=== PATIENT | female | born 1995 | race Caucasian/White ===

== ENCOUNTER 2025-02-08 14:07 | Outpatient (AMB) | payer OTHER, SELFPAY ==
--- NOTE | 2025-02-08 14:10 | A.OFFVIS_ITS ---
Vital Signs 02/08/25 14:14 Height 5 ft 6 in Weight 343 lb 14.738 oz BMI 55.5 BP 116/78 Blood Pressure Location Rt brachial Position Sitting Pulse 78 Pulse Source Pulse Oximeter Pulse Oximetry (%) 96 Oxygen Delivery Method Room Air Intake Visit Reasons: T2DM w/nephropathy Intake Note: NEW Patient presents today to establish treatment for Type 2 Diabetes Mellitus & Nephropathy: Last Diabetic eye exam was on: DUE, needs to make an appt Last Podiatry exam was on: Patient does not see a Marketing Services Rep Most recent HbA1c: 6.7%, 01/20/2025 PCP Random Glucose: 119 mg/dL Sheet Metal Former Required: No Accompanied by: Self / Same As Patient Allergies clonidine Allergy (Mild, Verified 02/08/25 14:16) Hot flashes dextrose Allergy (Mild, Verified 02/08/25 14:16) Hives magnesium Allergy (Mild, Verified 02/08/25 14:16) Hives Medication List - Last Reconciled 02/08/25 by Linda William PA-C albuterol sulfate 90 mcg/actuation (Ventolin HFA) 2 puffs inhalation Q6H PRN amlodipine-benazepril 5-10 mg 1 cap PO DAILY blood sugar diagnostic (FreeStyle Lite Strips) As directed blood-glucose sensor (FreeStyle Ernesto 3 Sensor device) As directed blood-glucose sensor (FreeStyle Ernesto 3 Plus Sensor device) Use daily As directed to monitor glucose buspirone 10 mg PO BID cetirizine (Zyrtec) 10 mg PO DAILY PRN cholecalciferol (vitamin D3) 125 mcg PO DAILY clonidine HCl 0.2 mg PO TID CPAP (CPAP Machine/Device) As directed duloxetine 60 mg PO BID ferrous sulfate 324 mg PO DAILY fexofenadine-pseudoephedrine 180-240 mg ER (Irene-D 24 Hour) 1 tab PO QAM fluticasone furoate 50 mcg/actuation inhalation gabapentin 300 mg PO DAILY lancets (FreeStyle Lancets) As directed lorazepam 1 mg PO DAILY PRN metformin 500 mg PO BID midodrine 5 mg PO TID montelukast 10 mg PO DAILY naratriptan 2.5 mg PO Q4H PRN polyethylene glycol 3350 (Miralax) 17 grams PO DAILY propranolol ER 160 mg PO DAILY propranolol ER 60 mg PO DAILY trazodone 50 mg PO BEDTIME PRN HPI HPI T2DM w/nephropathy: Details: Patient is a 29-year-old female who presents today to establish care regarding diabetes. She has a significant past medical history of obstructive sleep apnea, obesity, anxiety, depression, hypertension and type 2 diabetes. Endo: Dm she was diagnosed with diabetes. Most recent A1c was 6.8. She is currently managed with metformin 500 mg twice a day -she says that she is tolerating the metformin beginning she did have some diarrhea with it. That seems to have resolved. She says that she would be hesitant to start something like Ozempic or Trulicity because she struggles with appetite suppression and does not want to be suppressed. She has a previous history of an eating disorder. She is following closely with a psychiatrist. She has been wearing a CGM which she finds helpful for monitoring her blood sugars in the foods that she is sensitive to. She says that she has recently followed with a dietitian and she is trying to make some lifestyle modifications but has a hard time. father is a prediabetic CV: Blood pressure today in the office is 116/78. She is currently on propranolol and amlodipine/benazepril 5/10 mg daily [facility] Medical History (Updated 02/08/25 @ 14:48 by Linda William PA-C) Tachycardia Mixed hyperlipidemia Diabetes mellitus Severe obesity Seasonal allergies ANCELMO (obstructive sleep apnea) Myalgia Hypertension Arthritis Arthralgia Anxiety and depression Surgical History (Updated 02/08/25 @ 14:17 by CLAUDIO Srivastava) History of partial hysterectomy Family History (Updated 02/08/25 @ 14:17 by CLAUDIO Srivastava) Father Stroke Pre-diabetes Mother No problems noted. Social History Alcohol intake: current Alcohol intake frequency: a few times a month Patient Tobacco Use Status: Never used Tobacco Physical Exam Vital Signs: Last Vital Signs Pulse 78 02/08/25 14:14 BP 116/78 02/08/25 14:14 Pulse Ox 96 02/08/25 14:14 Oxygen Delivery Method Room Air 02/08/25 14:14 BMI result Body Mass Index 55.5 Const Orientation/consciousness: patient oriented x3 Neck Neck: Yes no lymphadenopathy Thyroid: Thyroid normal Carotids: no bruits Resp Auscultation: clear to auscultation bilaterally Cardio Rate: regular rate Rhythm: regular rhythm Heart sounds: S1 normal heart sound present and S2 normal heart sound present Neuro General: patient oriented x3, gait normal and no focal motor deficits Extrem General: Yes normal to inspection Results Reviewed Results Reviewed: Laboratory Last Values Glucose (Clinic) 119 mg/dL (60-115) H 02/08/25 14:23 Assessment & Plan Assessment & Plan (1) Type II diabetes mellitus, well controlled: Code(s): E11.9 - Type 2 diabetes mellitus without complications Category: Medical Plan: we spent 65 mins in face to face time discussing the pathophysiology of diabetes, the differences between type 1 and type 2 diabetes, signs and symptoms of hyper and hypoglycemia that would require emergent medical treatment. She does not want to make any medication changes today or start a GLP 1. She will continue with the metformin. Recheck labs in 3 months. Referral to nutrition educator. I have encouraged healthy lifestyle modifications and close follow up with the dietitian. (2) Hypertension: Code(s): I10 - Essential (primary) hypertension Category: Medical Plan: wnl continue current plan Orders: Orders Comprehensive Met. Panel Today E11.9 - Type 2 diabetes mellitus without complications, I10 - Essential (primary) hypertension Hemoglobin A1c Today E11.9 - Type 2 diabetes mellitus without complications, I10 - Essential (primary) hypertension, R73.01 - Impaired fasting glucose C Peptide Today E11.9 - Type 2 diabetes mellitus without complications, I10 - Essential (primary) hypertension Islet Cell Antibody Scrn/Titer Today E11.9 - Type 2 diabetes mellitus without complications, I10 - Essential (primary) hypertension Microalbumin, Random (w Creat) Today E11.9 - Type 2 diabetes mellitus without complications, I10 - Essential (primary) hypertension Glutamic acid decarboxylase Ab Today E11.9 - Type 2 diabetes mellitus without complications, I10 - Essential (primary) hypertension Referrals Diabetes Education Referral E11.9 - Type 2 diabetes mellitus without complications Medications: New blood-glucose sensor (FreeStyle Ernesto 3 Plus Sensor device) Use daily As directed to monitor glucose 2 ea 5RF E08.29 - Diabetes mellitus due to underlying condition with other diabetic kidney complication, R80.9 - Proteinuria, unspecified, Z79.4 - FDC (current) use of insulin Coding Level of Care Code New Pt Level 5 (48392) Complex EM visit Add On G2211 Diagnoses Type II diabetes mellitus, well controlled E11.9 Hypertension I10
[2025-02-08 14:14] VITALS: BP 116/78; PULSE 78; O2SAT 96; BMI 55.5
[2025-02-08 14:26] LABS: Glucose, Whole Blood 119 mg/dL (60-115)
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
--- OUTSIDE RECORDS SUMMARY | 2025-02-08 14:36 | XMS_ITS | Clinical Summary ---
Author Organization [facility] Address [address] [place] [address] Care Team Providers Care Chucking Lathe Operator Name Role Phone Unavailable Primary Care Provider Unavailabl e Social History Tobacco Use Types Packs/Day Years Used Date Smoking Tobacco: Never Assessed Comments Unknown Sex and Gender Information Value Date Recorded Sex Assigned at Not on file Legal Sex Female 7:17 PM EDT Gender Identity Not on file Sexual Orientation Not on file Obstetrics History Plan of Treatment Health Maintenance Due Date Last Done Comments COVID-19 Vaccine (#1) 2000 Hepatitis B Vaccines (1 of 3 - 19+ 3-dose series) 2014 Cervical Cancer Screening: P ap Smear 2016 HIV Screening 08/04/2023 Hepatitis C Screening 08/04/2023 Social Influencers of Health Screening 08/04/2023 Depression Screening 07/01/2024 Influenza Vaccine (#1) 2025 DTaP,Tdap,and Td Vaccines (2 - Td or Tdap) 06/20/2033 06/20/2023 HIB Vaccines Aged Out No longer eligi ble based on patient's age to complete this topic HPV Vaccines Aged Out No longer eligi ble based on patient's age to complete this topic Hepatitis A Vaccines Aged Out No long er eligible based on patient's age to complete this topic IPV Vaccines Aged Out No longer eligi ble based on patient's age to complete this topic MMR Vaccines Aged Out No longer eligi ble based on patient's age to complete this topic Meningococcal ACWY Vaccine Aged Out N o longer eligible based on patient's age to complete this topic Meningococcal B Vaccine Aged Out No l onger eligible based on patient's age to complete this topic Pneumococcal Vaccine: Pediat rics (0 to 5 Years) and At-Risk Patients (6 to 49 Years) Aged Out No longer eligi ble based on patient's age to complete this topic RSV Immunization Patients Un yee 20 months Aged Out No longer eligible b ased on patient's age to complete this topic Varicella Vaccines Aged Out No longer eligible based on patient's age to complete this topic
--- OUTSIDE RECORDS SUMMARY | 2025-02-08 14:36 | XMS_ITS | Clinical Summary ---
Author Organization [facility] Address [address] [place] [address] Care Team Providers Care Remote Sensing Surveyor Name Role Phone Unavailable Primary Care Provider Unavailabl e Allergies No known active allergies Medications No known medications Active Problems No known active problems Immunizations Name Administration Dates Next Due Tdap 06/20/2023 Social History Tobacco Use Types Packs/Day Years Used Date Smoking Tobacco: Never Assessed Sex and Gender Information Value Date Recorded Sex Assigned at Female 06/20/2023 1:26 PM EST Gender Identity Not on file Sexual Orientation Not on file Job Start Date Occupation Industry Not on file Not on file Not on file Last Filed Vital Signs Vital Sign Reading Time Taken Comments Blood Pressure 114/57 06/20/2023 10:50 AM EST Pulse 77 06/20/2023 10:55 AM EST Temperature 37.2 C (98.9 F) 06/20/2023 10:43 AM EST Respiratory Rate 20 06/20/2023 10:55 AM EST Oxygen Saturation 93% 06/20/2023 10:54 AM EST Inhaled Oxygen Concentration - - Weight - - Height - - Body Mass Index - - Plan of Treatment Health Maintenance Due Date Last Done Comments Hepatitis B Vaccines (1 of 3 - 3-dose series) 1995 Hepatitis C Screening 1995 COVID-19 Vaccine (#1) 01/09/1996 Depression Screening 2007 Preventative Health Evaluation 2013 Cervical Cancer Screening (P ap Smear) 2016 Influenza Vaccine (#1) 2025 DTap / Tdap / Td (2 - Td or Tdap) 06/20/2033 023 Pneumococcal Vaccine Aged Out No long er eligible based on patient's age to complete this topic RSV Ped < 20 months Aged Out No longe r eligible based on patient's age to complete this topic apt [address] [address] Della Ware TPL/AUTO Self [address] [place] [address] [address]
== END 2025-02-08 15:00 | disposition home or self-care (01) ==
LOC: HO.ENCR 14:08
PROVIDERS: PCP Physician Assistant; Visit Provider Physician Assistant
DX: E11.9 Type 2 diabetes mellitus without complications (principal); I10 Essential (primary) hypertension

== ENCOUNTER → 2025-02-08 14:07 | Outpatient (BNVA) | payer OTHER, SELFPAY | PROVIDERS: PCP Physician Assistant; Visit Provider Physician Assistant | DX: E11.29 Type 2 diabetes mellitus with other diabetic kidney complication (principal); G47.33 Obstructive sleep apnea (adult) (pediatric); E66.9 Obesity, unspecified; F41.9 Anxiety disorder, unspecified; F32.A Depression, unspecified; I10 Essential (primary) hypertension; Z79.4 Long term (current) use of insulin; Z68.43 Body mass index [BMI] 50.0-59.9, adult | CPT/HCPCS: 82947 ==

== ENCOUNTER 2025-05-31 15:27 | Outpatient (REF) | payer OTHER, SELFPAY ==
[2025-05-31 19:39] LABS: Alanine Aminotransferase 49 U/L (0-31); Albumin Level 4.7 g/dL (3.5-5.0); Alkaline Phosphatase 162 U/L (39-117); Anion Gap 17 (12-20); Aspartate Amino Transferase 33 U/L (5-31); Blood Urea Nitrogen 12 mg/dL (9-16); Calcium 10.3 mg/dL (8.4-10.2); Carbon Dioxide 21 mmol/L (22-29); Chloride 105 mmol/L (96-108); Estimated Glomerular Filt Rate > 60; Potassium 4.0 mmol/L (3.3-5.1); Sodium 139 mmol/L (135-145); Total Protein 7.7 g/dL (6.5-8.0)
[2025-05-31 19:41] LABS: Microalbum/Creatinine Ratio Ur 15.0 ug/mg cr (<30)
== END 2025-05-31 15:28 | disposition home or self-care (01) ==
LOC: HO.LAB 15:27
PROVIDERS: Visit Provider Physician Assistant
DX: E11.9 Type 2 diabetes mellitus without complications (principal); I10 Essential (primary) hypertension; Z13.89 Encounter for screening for other disorder; Z01.84 Encounter for antibody response examination; Z79.84 Long term (current) use of oral hypoglycemic drugs; Z79.899 Other long term (current) drug therapy
CPT/HCPCS: 36415; 80053; 82043; 82570; 82947; 83036; 84681; 86341

== ENCOUNTER 2025-05-31 15:27 | Outpatient (AMB) | payer OTHER, SELFPAY ==
[2025-05-31 15:31] VITALS: BP 122/84; PULSE 71; O2SAT 99; BMI 53.0
--- NOTE | 2025-05-31 15:31 | MHC.OFFVIS ---
Vital Signs 05/31/25 15:31 Height 5 ft 6 in Weight 328 lb 7.82 oz BMI 53.0 BP 122/84 Blood Pressure Location Lt brachial Position Sitting Pulse 71 Pulse Source Pulse Oximeter Pulse Oximetry (%) 99 Oxygen Delivery Method Room Air Intake Visit Reasons: T2DM w/nephropathy Intake Note: Patient present today for Type 2 Diabetes Mellitus Last Diabetic eye exam: Last exam was over 1 year ago Last Podiatry Visit: Doesn't have one Random Glucose: 93 mg/dl HgA1C: Due Pilot Can Router Required: No Allergies clonidine Allergy (Mild, Verified 05/31/25 15:37) Hot flashes dextrose Allergy (Mild, Verified 05/31/25 15:37) Hives magnesium Allergy (Mild, Verified 05/31/25 15:37) Hives Medication List - Last Reconciled 05/31/25 by Linda William PA-C albuterol sulfate 90 mcg/actuation (Ventolin HFA) 2 puffs inhalation Q6H PRN amlodipine-benazepril 5-10 mg 1 cap PO DAILY blood sugar diagnostic (FreeStyle Lite Strips) As directed blood-glucose sensor (FreeStyle Ernesto 3 Sensor device) As directed blood-glucose sensor (FreeStyle Ernesto 3 Plus Sensor device) Use daily As directed to monitor glucose buspirone 10 mg PO BID cetirizine (Zyrtec) 10 mg PO DAILY PRN cholecalciferol (vitamin D3) 125 mcg PO DAILY clonidine HCl 0.2 mg PO TID CPAP (CPAP Machine/Device) As directed duloxetine 60 mg PO BID ferrous sulfate 324 mg PO DAILY fexofenadine-pseudoephedrine 180-240 mg ER (Irene-D 24 Hour) 1 tab PO QAM fluticasone furoate 50 mcg/actuation inhalation gabapentin 300 mg PO DAILY lancets (FreeStyle Lancets) As directed lorazepam 1 mg PO DAILY PRN metformin 1,000 mg PO BID metformin 500 mg PO TID 90 days midodrine 5 mg PO TID montelukast 10 mg PO DAILY naratriptan 2.5 mg PO Q4H PRN polyethylene glycol 3350 (Miralax) 17 grams PO DAILY propranolol ER 160 mg PO DAILY propranolol ER 60 mg PO DAILY trazodone 50 mg PO BEDTIME PRN HPI HPI T2DM w/nephropathy: Details: Patient is a 29-year-old female who presents today for a follow up regarding diabetes. She has a significant past medical history of obstructive sleep apnea, obesity, anxiety, depression, hypertension and type 2 diabetes. Endo: Dm she was diagnosed with diabetes. Previous A1c was 6.8. A1c machine today in office is down. BS is 93. She is currently managed with metformin 500 mg 3 x a day -she says that she is tolerating the metformin. Cannot eat much greasy food with it. She says that she would be hesitant to start something like Ozempic or Trulicity because she struggles with appetite suppression and does not want to be suppressed. She has a previous history of an eating disorder. She is following closely with a psychiatrist. She intermittently uses a CGM which she finds helpful for monitoring her blood sugars in the foods that she is sensitive to. Following with a dietitian and she is trying to make some lifestyle modifications. She has lost about 15 lbs. father is a prediabetic CV: Blood pressure today in the office is 122/84. She is currently on propranolol and amlodipine/benazepril 5/10 mg daily [facility] Medical History (Updated 02/08/25 @ 14:48 by Linda William PA-C) Tachycardia Mixed hyperlipidemia Diabetes mellitus Severe obesity Seasonal allergies ANCELMO (obstructive sleep apnea) Myalgia Hypertension Arthritis Arthralgia Anxiety and depression Surgical History History of partial hysterectomy Family History Father Stroke Pre-diabetes Mother No problems noted. Social History Alcohol intake: current Alcohol intake frequency: a few times a month Patient Tobacco Use Status: Never used Tobacco Physical Exam Vital Signs: Last Vital Signs Pulse 71 05/31/25 15:31 BP 122/84 05/31/25 15:31 Pulse Ox 99 05/31/25 15:31 Oxygen Delivery Method Room Air 05/31/25 15:31 BMI result Body Mass Index 53.0 Const Orientation/consciousness: patient oriented x3 HEENT Ears: hearing grossly normal bilaterally Neck Neck: Yes no lymphadenopathy Thyroid: Thyroid normal Carotids: no bruits Lymphatic: no lymphadenopathy noted Resp Auscultation: clear to auscultation bilaterally Cardio Rate: regular rate Rhythm: regular rhythm Heart sounds: S1 normal heart sound present and S2 normal heart sound present Peripheral pulses: dorsalis pedis present Skin General skin exam: no rashes or lesions noted Neuro General: patient oriented x3, gait normal and no focal motor deficits Extrem Other: Monofilament sensation intact bilaterally. Vibratory sensation intact bilaterally. Skin intact. General: Yes normal to inspection Assessment & Plan Assessment & Plan (1) Type II diabetes mellitus, well controlled: Code(s): E11.9 - Type 2 diabetes mellitus without complications Category: Medical Plan: We will continue current regimen. Advised patient to complete labs. We will follow up pending test results. If A1c is greater than 6.5 we will plan to increase metformin dosing otherwise, we will continue current regimen. Orders: Orders AMB Hemoglobin A1c Today E11.9 - Type 2 diabetes mellitus without complications, Z13.9 - Encounter for screening, unspecified Coding Level of Care Code Est Pt Level 4 (27786) Complex visit Add On G2211 Diagnoses Type II diabetes mellitus, well controlled E11.9
[2025-05-31 15:44] LABS: Glucose, Whole Blood 93 mg/dL (60-115)
--- OUTSIDE RECORDS SUMMARY | 2025-05-31 18:26 | XMS_ITS | Encounter Summary ---
Author Organization [facility] Address [address] [place] [address] Care Team Providers Care Test Engineer Nuclear Equipment Name Role Phone Rosita White MD Primary Care Provider [phone] Eddie Simental PA-C Unavailable [phone] Encounter Details Date Type Department Care Team ([facility] Contact Info) Description 05/19/2024 Scanned Document [facility] Heart & Vascular [place] at [facility] - Cardiology [address] [place] [address] Eddie Simental PA-C [address] [place] [id number] Social History Tobacco Use Types Packs/Day Years Used Date Smoking Tobacco: Never Assessed Comments Unknown Sex and Gender Information Value Date Recorded Sex Assigned at Female 08/23/2023 10:35 AM EST Legal Sex Female 2:17 PM EST Gender Identity Choose not to disclose 8:06 AM EDT Sexual Orientation Choose not to disclose 2023 10:35 AM EST documented as of this encounter Plan of Treatment Not on file documented as of this encounter Visit Diagnoses Not on filedocumented in this encounter Care Teams Test Engineer Nuclear Equipment Relationship Specialty Start Date End Date Rosita White MD [address] [place] [phone] PCP - General Internal Medicine 06/04/23 Eddie Simental PA-C [address] [place] [id number] Physician Director Business Development Cardiac Electrophysiology 12/13/23 documented as of this encounter
--- OUTSIDE RECORDS SUMMARY | 2025-05-31 18:26 | XMS_ITS | Clinical Summary ---
Author Organization [facility] Address [address] [place] [address] Care Team Providers Care Assembly Line Worker Name Role Phone Unavailable Primary Care Provider [...] patient's age to complete this topic apt [address] [address] Della Ware TPL/AUTO Self [address] [place] [address] [address]
--- OUTSIDE RECORDS SUMMARY | 2025-05-31 18:26 | XMS_ITS | Clinical Summary ---
Author Organization [facility] Address [address] [place] [id number] Care Team Providers Care Radon Inspector Name Role Phone Rosita White MD Primary Care Provider [phone] Eddie Simental PA-C Unavailable [phone] Allergies Active Allergy Reactions Criticality Noted Date Comments Alum & Mag Hydroxide-Simeth Hives Medium 08/14/19 24 Medications gabapentin (NEURONTIN) 300 MG capsule Take 1 capsule (300 mg total) by mouth 3 (three) times a day. Active busPIRone (BUSPAR) 15 MG tablet Take 20 mg by mouth 3 (three) times a day. Active DULoxetine (CYMBALTA) 60 MG capsule Take 1 capsule (60 mg total) by mouth 2 times a day. Active traZODone (DESYREL) 25 MG tablet Take 2 split tablet (50 mg total) by mouth nightly. Active amLODIPine-benaze pril (LOTREL) 5-10 mg per capsule Take 1 capsule by mouth daily. Active LORazepam (ATIVAN) 1 MG tablet Take 1 tablet (1 mg total) by mouth 3 times daily (every 8 hours) as needed for anxiety. Active cetirizine (ZyrTEC) 10 MG tablet Take 1 tablet (10 mg total) by mouth daily. Active cholecalciferol (CHOLECALCIFEROL) 25 MCG (1000 UT) tablet Take 1 tablet (1,000 Units total) by mouth daily. Active Medical Compression StockingsIndicati ons:Orthostatic intolerance Level of Compression: 20-30 mmHg; knee-high. Please measure to ensure proper fit/compressio n 2 each 4 Active norethindrone (AYGESTIN) 5 MG tablet Take 1 tablet (5 mg total) by mouth daily. 4 Active propranolol (INDERAL LA) 160 MG SR capsuleIndication s:Orthostatic intolerance Take 1 capsule (160 mg total) by mouth daily. 90 capsule 3 5 07/01/19 26 Active propranolol (INDERAL LA) 60 MG 24 hr capsuleIndication s:Inappropriate sinus tachycardia Take 1 capsule (60 mg total) by mouth nightly. 90 capsule 3 5 08/30/19 26 Active cloNIDine (CATAPRES) 0.1 MG tabletIndications :Postural orthostatic tachycardia syndrome (POTS),Secondary hypertension Take 2 tablets (0.2 mg total) by mouth 3 (three) times a day. 540 tablet 3 5 Active atomoxetine (STRATTERA) 60 MG capsule Take 1 capsule (60 mg total) by mouth daily. Active fexofenadine (POOL) 180 MG tablet Take 1 tablet (180 mg total) by mouth daily. Administer with water only; do not administer with fruit juices. Active naratriptan (AMERGE) 2.5 MG tablet Take 1 tablet (2.5 mg total) by mouth once as needed for migraine. May repeat in 4 hours if unresolved. Do not exceed 5 mg in 24 hours. Active albuterol (PROVENTIL HFA; VENTOLIN HFA) 108 (90 Base) MCG/ACT inhaler Inhale 2 puffs 4 times daily (every 6 hours) as needed for wheezing. Active midodrine (ProAmatine) 5 MG tabletIndications :Postural orthostatic tachycardia syndrome (POTS) Take 2 tablets (10 mg total) by mouth 3 (three) times a day. Take during daytime hours every 4 hours 180 tablet 5 5 09/13/19 26 Active propranolol (INDERAL) 10 MG tabletIndications :Postural orthostatic tachycardia syndrome (POTS),Post-COVID chronic palpitations Take 1 tablet (10 mg total) by mouth 3 (three) times a day as needed (palpittaions) . 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 08/15/2023 Severe obesity 08/15/2023 08/15/2023 Postural orthostatic tachycardia syndrome (POTS) 08/15/2023 Overview (08/15/2023): Probable hyperadrenergic subtype Inappropriate sinus tachycardia 08/15/2023 Resolved Problems Problem Noted Date Diagnosed Date Resolved Date Disease due to severe acute respiratory syndrome coronavirus 2 (SARS-CoV-2) 08/15/2023 08/15/202308/29 Encounters Date Type Department Care Team Description 03/16/2025 1:37 PM EDT - 03/16/2025 11:59 PM EDT Hospital Encounter [facility] Heart & Vascular [place] [facility] - Cardiology [address] [place] [phone] Eddie Simental PA-C Follow-up Discharge Disposition: Home or Self Care from Last 3 Months Immunizations Immunization Administration Dates Next Due Tdap 06/20/2023,12/30/2018 Social History Tobacco Use Types Packs/Day Years Used Date Smoking Tobacco: Never Assessed Comments Unknown Sex and Gender Information Value Date Recorded Sex Assigned at Female 08/23/2023 10:35 AM EST Legal Sex Female 2:17 PM EST Gender Identity Choose not to disclose 8:06 AM EDT Sexual Orientation Choose not to disclose 2023 10:35 AM EST Last Filed Vital Signs Vital Sign Reading Time Taken Comments Blood Pressure 127/85 03/16/2025 2:10 PM EDT Pulse 91 03/16/2025 2:10 PM EDT Temperature - - Respiratory Rate - - Oxygen Saturation 97% 03/16/2025 2:10 PM EDT Inhaled Oxygen Concentration - - Weight 159 kg (350 lb) 03/16/2025 2:10 PM EDT Height 167.6 cm (5' 6 ) 03/16/2025 2:10 PM EDT Body Mass Index 56.49 03/16/2025 2:10 PM EDT Plan of Treatment Health Maintenance Due Date Last Done Comments Hepatitis C Virus Screening 1995 HIV Screening 2008 Hepatitis B Vaccines (1 of 3 - 19+ 3-dose series) 2014 Pap Smear (Ages 21-65) 2016 Influenza Vaccine 01/29/2025 03/30/2024, 04/20/2023 DTaP/Tdap/Td Vaccines (3 - Td or Tdap) 06/20/2033 06/20/2023, 12/30/2018 COVID-19 Vaccine Completed 03/30/2024, , 06/19/2021, Additional history exists HPV Vaccines (No Doses Required) Completed Pneumococcal Vaccine: Pediatric (0-5 Years) and At-Risk Patients (6 to 49 Years) Aged Out No longer eligible based on patient's age to complete this topic Procedures Procedure Name Priority Date/Time Associated Diagnosis Comments ECG 12-LEAD Routine 03/16/2025 2:19 PM EDT Procedure Note - 03/16/2025 2:19 PM EDTThis note is in progress. Normal sinus rhythm Cannot rule out Anterior infarct (cited on or before 14-Aug-2023) Abnormal ECG When compared with ECG of 14-Aug-2023 14:55, Nonspecific T wave abnormality, worse in Anterior leads ECG 12-LEAD Routine 03/16/2025 2:19 PM EDT Other abnormalities of heart beat from Last 3 Months Results * ECG 12 lead (03/16/2025 2:19 PM EDT) Ventricular rate 87 BPM EKG [facility] Atrial rate 87 BPM EKG [facility] P-R interval 128 ms EKG [facility] QRS [facility] 84 ms EKG [facility] Q-T interval 360 ms EKG [facility] QTC calculation (Bazett) 433 ms EKG [facility] P axis 2 degrees EKG [facility] R axis 53 degrees EKG [facility] T axis 11 degrees EKG [facility] 03/16/2025 2:19 PM EDT Narrative EKG [facility] - 03/19/2025 2:30 PM EDT Normal sinus rhythm Cannot rule out Anterior infarct (cited on or before 14-Aug-2023) Abnormal ECG When compared with ECG of 14-Aug-2023 14:55, No significant changes Confirmed by MD DAI Marcin ([id number]) on 03/19/2025 2:30:43 PM Procedure Note Champ Dai MD - 03/19/2025 Normal sinus rhythm Cannot rule out Anterior infarct (cited on or before 14-Aug-2023) Abnormal ECG When compared with ECG of 14-Aug-2023 14:55, No significant changes Confirmed by MD DAI Marcin ([id number]) on 03/19/2025 2:30:43 PM Eddie Simental PA-C ECG ORDERABLES [facility] * Guarantor: Della Ware Account Type Relation to Patient Date of Phone Billing Address Personal/Family Self [address] [place] [address] R Care Teams Radon Inspector Relationship Specialty Start Date End Date Rosita White MD [address] [place] [phone] PCP - General Internal Medicine 06/04/23 Eddie Simental PA-C [address] [place] [phone] Physician Sh[employer] [facility]er Cardiac Electrophysiology 12/13/23
--- OUTSIDE RECORDS SUMMARY | 2025-05-31 18:26 | XMS_ITS | Clinical Summary ---
Author Organization [facility] ity Address [address] [place] [address] Care Team Providers Care Chief Business Officer Name Role Phone Unavailable Primary Care Provider [...] Cervical Cancer Screening: P ap Smear 2016 HPV Vaccines (1 - 3-dose SCD M series) 2022 HIV Screening 08/04/2023 Hepatitis C Screening 08/04/2023 Social Influencers of Health Screening 08/04/2023 Depression Screening 07/01/2024 COVID-19 Vaccine (1 - 2024-2 6 season) 2025 Influenza Vaccine (#1) 2025 DTaP,Tdap,and Td Vaccines (2 - Td or Tdap) 06/20/2033 06/20/2023 RSV Immunization Adult Patie nts (1 - 1-dose 75+ series) 2070 HIB Vaccines Aged Out No longer eligi [...]
== END 2025-05-31 16:09 | disposition home or self-care (01) ==
LOC: HO.ENCR 15:28
PROVIDERS: PCP Physician Assistant; Visit Provider Physician Assistant
DX: E11.9 Type 2 diabetes mellitus without complications (principal)